=== PATIENT | male | born 1975 | race Caucasian/White ===

== ENCOUNTER 2020-01-11 12:17 | Emergency (ER) | payer OTHER, SELFPAY ==
[2020-01-11 12:26] VITALS: BP 160/118; PULSE 100; RESP 18; TEMP 37.4; O2SAT 98
--- NOTE | 2020-01-11 12:31 | ED.URI ---
HPI - URI/Sore Throat General Chief Complaint: Upper Respiratory Infection Stated Complaint: sore throat Time Seen by Provider: 01/11/20 12:31 Source: patient and RN notes reviewed History of Present Illness HPI Narrative: Patient is a 44-year-old male who presents the urgent care with complaints of a sore throat and bilateral ear pressure. Patient denies of any fever, nausea, vomiting. States that he had a mild cough yesterday but is currently not complaining of any cough or shortness of breath. Patient took 1 dose of NyQuil last night but otherwise has not used anything [id number] for his symptoms. Denies of any known exposure to strep or COVID. No other acute complaints. No acute distress noted. Patient read the plan of care. Related Data Home Medications Medication Instructions Recorded Confirmed No Home Medications 01/11/20 01/11/20 Allergies Allergy/AdvReac Type Severity Reaction Status Date / Time No Known Allergies Allergy Verified 01/11/20 12:43 Review of Systems Review of Systems: Narrative: CONSTITUTIONAL: Denies fever, chills, or sweats. EYES: Denies visual changes, redness, or discharge. ENT: Reports of sore throat and bilateral otalgia CARDIOVASCULAR: Denies chest pain, palpitations, or edema. RESPIRATORY: Denies cough or dyspnea. GASTROINTESTINAL: Denies abdominal pain, nausea, vomiting, or diarrhea. GENITOURINARY: Denies dysuria or hematuria. SKIN: Denies rash or itching. MUSCULOSKELETAL: Denies back pain, joint pain, or myalgia. NEUROLOGIC: Denies headache, numbness, or weakness. All other systems reviewed are negative, except as documented in HPI. PMFSH Comments At the time of my signature, I reviewed and agree with the nursing past medical, surgical, social, and family history. There is no relevant family history pertinent to the patient complaint. Exam Narrative: Exam Narrative: GENERAL: This is a well-nourished, well-developed patient, in no apparent distress. HEAD: normocephalic, atraumatic. EYES: PERRL. Sclera clear/white. Vision is grossly intact. EARS: External ears normal, auditory canals clear and without drainage, TMs normal without perforation. Hearing grossly intact. NOSE: External nose normal with no obvious nasal discharge, nares without redness, no rhinorrhea. THROAT: Mucous membranes moist, moderate erythema noted to posterior oropharynx without exudate or ulceration. Moderate postnasal drainage. NECK: Neck supple, non-tender without lymphadenopathy, masses or thyromegaly. CARDIOVASCULAR: Regular rate and rhythm without murmurs, gallops, or rubs. RESPIRATORY: Clear to auscultation. Breath sounds equal bilaterally. No wheezes, rales, or rhonchi. SKIN: warm, intact with no suspicious lesions or rash, good texture and turgor. NEURO: awake, alert, and oriented to person, place and time. There were no obvious focal neurologic abnormalities. EXTREMITIES: No clubbing, cyanosis, or edema. Course Vital Signs Vital signs: Vital Signs Temperature 99.3 F 01/11/20 12:26 Pulse Rate 100 01/11/20 12:26 Respiratory Rate 18 01/11/20 12:26 Blood Pressure 160/118 H 01/11/20 12:26 Pulse Oximetry 98 01/11/20 12:26 Temperature 99.3 F 01/11/20 12:26 Pulse Rate 100 01/11/20 12:26 Respiratory Rate 18 01/11/20 12:26 Blood Pressure 160/118 H 01/11/20 12:26 Pulse Oximetry 98 01/11/20 12:26 Reviewed-patient is informed that they may have pre-hypertension or hypertension based on a blood pressure reading in the department. I recommend the patient call the primary care provider listed on their discharge instructions or a physician of their choice this week to arrange follow-up for further evaluation of possible pre-hypertension or hypertension. MDM - URI/Sore Throat MDM Narrative Medical decision making narrative: Reviewed lab results with the patient. He is aware that strep swab was negative. Educated patient on culture we will call within 72 hours if culture is
--- NOTE | 2020-01-11 13:33 | PC.NURSE ---
noted during stay pt informed nurse b/p always high related kidney disease. stated did not have a doctor, but would will call today to establish a primary doctor, obtaining meds as needed.
== END 2020-01-11 13:00 | disposition home or self-care (01) ==
PROVIDERS: Emergency Provider Nurse Practitioner Family
DX: J02.9 Acute pharyngitis, unspecified (principal); I10 Essential (primary) hypertension; G47.30 Sleep apnea, unspecified; K21.9 Gastro-esophageal reflux disease without esophagitis
CPT/HCPCS: 87081; 87880; 99213; G0463